=== PATIENT | female | born 1950 | race Caucasian/White ===

== ENCOUNTER → 2024-03-13 12:10 | Outpatient (ROUT) | payer MEDICARE, SELFPAY ==
[2024-03-13 12:16] LABS: Add Manual Diff / Slide Review NO; Basophils Absolute Auto 100 /uL (0-100); Basophils Percent Auto 0.4 % (0-2); Eosinophils Absolute Auto 200 /uL (0-450); Eosinophils Percent Auto 1.8 % (2-4); Hematocrit 30.3 % (36-46); Hemoglobin 9.1 g/dL (12.0-16.0); Lymphocytes Absolute Auto 2500 /uL (1100-4500); Lymphocytes Percent Auto 17.4 % (25-40); Mean Corpuscular HGB Conc 30.2 % (30-36); Mean Corpuscular Hemoglobin 23.4 PG (26-34); Mean Corpuscular Volume 77.5 fL (80-100); Monocytes Absolute Auto 700 /uL (0-900); Monocytes Percent Auto 5.2 % (3-14); Neutrophils Absolute Auto 10700 /uL (1500-7000); Neutrophils Percent Auto 75.2 % (50-75); Platelet Count 345 X10^3/uL (150-400); Red Cell Distribution Width 18.6 % (11.6-14.8); White Blood Cell Count 14.2 X10^3/uL (4.5-11.0)
[2024-03-13 12:53] LABS: Alanine Aminotransferase 15 IU/L (<35); Albumin 3.8 g/dL (3.5-5.0); Alkaline Phosphatase 162 U/L (38-126); Aspartate Aminotransferase 25 IU/L (14-36); BUN Creatinine Ratio 11.3 (6-22); Bilirubin Total 0.6 mg/dL (0.2-1.3); Blood Urea Nitrogen 11 mg/dL (7-17); Calcium 8.3 mg/dL (8.4-10.2); Carbon Dioxide 27 mmol/L (22-32); Chloride 106 mmol/L (98-107); Estimated Glomerular Filt Rate > 60 mL/min (>60); Globulin 3.7 g/dL (1.7-4.1); Glucose 128 mg/dL (80-110); HEMOLYSIS < 15 (0-50); Potassium 3.5 mmol/L (3.4-5.1); Sodium 141 mmol/L (137-145); Total Protein 7.5 g/dL (6.3-8.2)
== END ==
PROVIDERS: Visit Provider Physical Therapy Assistant
DX: D50.9 Iron deficiency anemia, unspecified (principal); E26.1 Secondary hyperaldosteronism; K74.60 Unspecified cirrhosis of liver
CPT/HCPCS: 80053; 85025

== ENCOUNTER → 2024-09-04 07:58 | Outpatient (ROUT) | payer MEDICARE, SELFPAY ==
[2024-09-04 08:20] LABS: Hematocrit 39.5 % (36-46); Mean Corpuscular Hemoglobin 30.4 PG (26-34); Mean Corpuscular Volume 92.1 fL (80-100); Platelet Count 224 X10^3/uL (150-400); Red Blood Cell Count 4.28 X10^6/uL (4.0-5.2); Red Cell Distribution Width 18.3 % (11.6-14.8)
[2024-09-04 08:41] LABS: HEMOLYSIS < 15 (0-50); Iron 96 ug/dL (37-170)
[2024-09-04 08:47] LABS: BUN Creatinine Ratio 14.3 (6-22); Blood Urea Nitrogen 10 mg/dL (7-17); Calcium 8.8 mg/dL (8.4-10.2); Carbon Dioxide 26 mmol/L (22-32); Chloride 105 mmol/L (98-107); Estimated Glomerular Filt Rate > 60 mL/min (>60); Glucose 94 mg/dL (70-99); HEMOLYSIS < 15 (0-50); Magnesium 2.1 mg/dL (1.6-2.3); Potassium 4.4 mmol/L (3.4-5.1); Sodium 138 mmol/L (137-145)
[2024-09-04 08:54] LABS: Percent Iron Saturation 36 % (15-50); Total Iron Binding Capacity 270 ug/dL (265-497); Transferrin 207 mg/dL (206-381)
[2024-09-04 08:59] LABS: Neutrophils Absolute Manual 7020 /uL (3000-5900); Total Cells Counted 100
[2024-09-04 09:00] LABS: Anisocytosis 1+
[2024-09-04 09:49] LABS: Folate 6.2 ng/mL (2.76-20.0); Vitamin B12 176 pg/mL (239-931)
== END ==
PROVIDERS: Visit Provider Registered Nurse
DX: D64.9 Anemia, unspecified (principal); R60.9 Edema, unspecified
CPT/HCPCS: 36415; 80048; 82607; 82746; 83540; 83550; 83735; 85025

== ENCOUNTER 2024-09-26 14:00 | Emergency (ER) | payer MEDICARE, MEDICAID, SELFPAY ==
[2024-09-26 14:10] VITALS: BP 132/59; PULSE 75; RESP 16; TEMP 37.1; O2SAT 98; BMI 31.1
[2024-09-26] MEDS: LIDOCAINE/PRILOCAINE 5 GM TOP (14:37)
--- NOTE | 2024-09-26 14:58 | ED.SKABFB ---
HPI - Skin/Abscess/Foreign Bdy General Chief complaint: Skin/Abscess/Foreign Body Stated complaint: Boil on left ear needs drained Time Seen by Provider: 09/26/24 14:13 Source: patient Mode of arrival: Wheelchair Limitations: no limitations History of Present Illness HPI narrative: 73-year-old female that presents with an abscess over her left earlobe for the past 2 weeks. Patient denies any fever chills or any other symptoms. Patient comes from a living facility where she was told that this abscess potentially needed to be drained. Related Data Previous Rx's ?Medication ?Instructions ?Recorded cephalexin 500 mg capsule 500 mg PO QID #28 caps 09/26/24 cephalexin 500 mg capsule 500 mg PO QID #28 caps 09/26/24 Allergies Allergy/AdvReac Type Severity Reaction Status Date / Time Penicillins Allergy Intermediate Rash Verified 09/26/24 14:10 Review of Systems Constitutional Constitutional: Reports as per HPI ENT Ears, Nose, Mouth, and Throat: Reports system reviewed and no additional complaints, except as documented Patient History Social History Smoking Status: Current every day smoker Smoking Status: Current every day smoker tobacco type: cigarettes Exam Narrative Exam Narrative: General: Patient appears to be in no acute distress, acting appropriately Head: normocephalic, atraumatic, left ear: Fluctuance felt, swollen over left lower lobe area, pain with palpation HEENT: Pupils equal round reactive, eyes tracking well, neck supple, no JVD Heart: regular rate and rhythm, no murmurs, rubs, or gallops heard Lungs: clear to auscultation, no adventitious sounds Abdomen: soft , nontender, nondistended, positive bowel sounds Neurological: no focal neurological signs, moving all extremities well, alert and oriented x3, Psych: good judgment ,good insight, mood is normal. Initial Vital Signs Initial Vital Signs: Vital Signs Temperature 98.8 F 09/26/24 14:10 Pulse Rate 75 09/26/24 14:10 Respiratory Rate 16 09/26/24 14:10 Blood Pressure 132/59 L 09/26/24 14:10 Pulse Oximetry 98 09/26/24 14:10 Oxygen Delivery Method Room Air 09/26/24 14:10 Procedures Abscess I/D I&D #1: Time of procedure: 14:00 Site: other (left ear lobe ) Side (if applicable): left Sedation/analgesia: none Local Anesthetic: lidocaine 1% Amount of anesthesia used (mL): 2 Technique: incised with #11 blade Amount of fluid expressed (mL): 3 Irrigation: No Packing used?: none Course Orders Ordered: Discontinued Medications Cephalexin HCl (Cephalexin 250 Mg Capsule) 500 mg PO NOW ONE Stop: 09/26/24 15:11 Last Admin: 09/26/24 15:22 Dose: 500 mg Documented By: Lidocaine/Prilocaine (Lidocaine/Prilocaine 5 Gm) 5 gm TOP NOW ONE Stop: 09/26/24 14:29 Last Admin: 09/26/24 14:37 Dose: 5 gm Documented By: BT Vital Signs Vital signs: Vital Signs - 8 hr 09/26/24 14:10 09/26/24 15:30 Temperature 98.8 F 98.4 F Pulse Rate 75 85 Respiratory Rate 16 19 Blood Pressure 132/59 L 138/78 Pulse Oximetry 98 98 Oxygen Delivery Method Room Air Room Air MDM - Skin/Abscess/Foreign Bdy Differential Diagnosis Differential diagnosis: Likely abscess of skin or subcutaneous tissue, urticaria, allergic reaction to drug and cellulitis Condition is at treatment goal?: No Medical Records Attestation: I reviewed the patient's medical records. Medical records narrative: no recent records Lab Data Attestation: I reviewed the patient's lab results. MDM Narrative Medical decision making narrative: 73-year-old female had a successful I and D of her left earlobe abscess. Patient advised to take the antibiotics as directed and to do daily wound changes which would be done at her assisted living facility. Discharge Plan Departure Patient Disposition: Home Clinical Impression: Abscess of skin or subcutaneous tissue Qualifiers: Site of cutaneous abscess: other site Qualified Code(s): L02.818 - Cutaneous abscess of other sites Instructions: DI for Skin Abscess Activity Restrictions/Additional Instructions: Change dressing with either dry gauze or another clear optisite bandaid daily, come back if infection worsens Prescriptions: New cephalexin 500 mg capsule 500 mg PO QID Qty: 28 0RF cephalexin 500 mg capsule 500 mg PO QID Qty: 28 0RF Stand Alone Forms: Patient Portal/API
[2024-09-26] MEDS: cephALEXin 250 MG CAPSULE 500 MG PO (15:22)
[2024-09-26 15:30] VITALS: BP 138/78; PULSE 85; RESP 19; TEMP 36.9; O2SAT 98
== END 2024-09-26 15:32 | disposition home or self-care (01) ==
PROVIDERS: Emergency Provider Family Medicine
DX: H60.02 Abscess of left external ear (principal)
CPT/HCPCS: 69000; 99283